=== PATIENT | male | born 1990 | race Two or more races ===

== ENCOUNTER 2025-04-21 12:18 | Emergency (ER) | payer SELFPAY ==
[~2025-04-21] VITALS: Ht 195.6 cm; Wt 82.0 kg
[2025-04-21 12:20] VITALS: O2SAT 98
[2025-04-21 12:21] VITALS: BP 104/77; PULSE 74; RESP 16; TEMP 36.7; O2SAT 99
== END 2025-04-21 15:41 | disposition home or self-care (01) ==
LOC: ER 12:18
DX: S93.119A Dislocation of interphalangeal joint of unspecified toe(s), initial encounter (principal); W17.89XA Other fall from one level to another, initial encounter; Y93.89 Activity, other specified; Y92.89 Other specified places as the place of occurrence of the external cause; Y99.8 Other external cause status
CPT/HCPCS: 28660; 73630; 99284